=== PATIENT | male | born 1985 | race Hispanic/Latino ===

== ENCOUNTER 2020-05-17 13:29 | Emergency (ER) | payer SELFPAY ==
[2020-05-17 14:14] VITALS: BP 139/89
--- NOTE | 2020-05-17 14:19 | Event Note ---
ED Screening Note Date of service: 05/17/20 Time: 14:15 ED Screening Note: 34-year-old morbid obese male presents to the emergency room complaining of lymph node swelling, bilateral ringing of his ears x2 weeks nausea and dizziness. Patient states he was seen at the urgent care and was treated with a azithromycin for STD. Patient States that he feels like he is going to fall when he he lifts his head backwards. Patient does admit to nausea. Last Covid test was yesterday and negative. Patient denies any smoking weed denies drinking alcohol but does admit to smoking cigarettes. Patient states he does not take any medications on a daily basis. Patient has a complete neuro examination. Does have swelling to his right tonsillar lymph. Bilateral ears traction to the tympanic membrane nonerythematous. This initial assessment/diagnostic orders/clinical plan/treatment(s) is/are subject to change based on patients health status, clinical progression and re- assessment by fellow clinical providers in the ED. Further treatment and workup at subsequent clinical providers discretion. Patient/guardian urged not to elope from the ED as their condition may be serious if not clinically assessed and managed. Initial orders include:
--- NOTE | 2020-05-17 18:16 | Emergency Department Report ---
ED General Adult HPI - General Chief complaint: Earache Stated complaint: DIZZY/NAUSEA/EAR RINGING Time Seen by Provider: 05/17/20 17:57 Source: patient Mode of arrival: Ambulatory Limitations: No Limitations - History of Present Illness Initial comments: This is a 34-year-old man who reports bilateral otalgia for 2 weeks. He complains of occasional nausea and positional dizziness. He has developed tenderness over this time. He states that he went to a local clinic for STD related symptoms and was given a azithromycin for the same. That problem a pparently resolved. He has a sore throat and has noted pus on his right tonsil in particular. He states that he gets dizzy at times with leaning his head back. He is aware of multiple swollen glands about his anterior neck. He does not report any recent fever or chills. He does not describe pain in his mastoid areas per se. He has had an occasional cough. He had a Covid test yesterday that was negative. He said no recent HIV testing. 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 He states he smokes cigarettes. In the past he states that he had an apparent event monitor for 60 days which he states that he wore because of "massive" drug use. He states he was told he had a heart problem at that time but not subsequently. Cannot describe his heart issue any further. He does not take any regular medications. He states that he is recently moved to this area. -: Gradual, week(s) Location: neck (Sore throat, earache, swollen lymph nodes neck) Radiation: non-radiation Quality: aching Consistency: intermittent Improves with: none Worsens with: none Associated Symptoms: denies other symptoms, cough. denies: chest pain, fever/chills, nausea/vomiting, shortness of breath, syncope Treatments Prior to Arrival: other (Azithromycin) - Related Data Previous Rx's Medication Instructions Recorded Last Taken Type Sulfamethoxazole/Trimethoprim 1 each PO BID #14 tablet 05/17/20 Unknown Rx [Bactrim DS TAB] Allergies Allergy/AdvReac Type Severity Reaction Status Date / Time No Known Allergies Allergy Verified 05/17/20 13:45 ED Review of Systems ROS: Stated complaint: DIZZY/NAUSEA/EAR RINGING Other details as noted in HPI Constitutional: denies: chills, fever Eyes: denies: eye pain, eye discharge, vision change ENT: as per HPI, ear pain, throat pain Respiratory: cough. denies: shortness of breath Cardiovascular: denies: chest pain, palpitations Endocrine: no symptoms reported Gastrointestinal: denies: abdominal pain, nausea, diarrhea Genitourinary: denies: urgency, dysuria Musculoskeletal: denies: back pain, arthralgia Skin: denies: rash, lesions Neurological: denies: headache, weakness, paresthesias Psychiatric: denies: anxiety, depression Hematological/Lymphatic: denies: easy bleeding, easy bruising ED Past Medical Hx - Past Medical History Previous Medical History?: Yes Additional medical history: See HPI above - Social History Smoking Status: Current Every Day Smoker Substance Use Type: None - Medications Home Medications: Home Medications Medication Instructions Recorded Confirmed Last Taken Type Sulfamethoxazole/Trimethoprim 1 each PO BID #14 tablet 05/17/20 Unknown Rx [Bactrim DS TAB] ED Physical Exam - General Limitations: Physical Limitation General appearance: obese - Head Head exam: Present: atraumatic, normocephalic - Eye Eye exam: Present: normal appearance. Absent: scleral icterus - ENT ENT exam: Present: mucous membranes moist, other (Erythema and focal bulging of the left tympanic membrane noted, the right tympanic membrane is also erythematous but not bulging). Absent: normal exam (There is some tenderness to palpation of the right mastoid), TM's normal bilaterally - Neck Neck exam: Present: normal inspection, lymphadenopathy (Noted in the posterior cervical chain the anterior cervical chain and the periauricular area, nothing fluctuant), other (Very substantial lymphadenopathy) - Respiratory Respiratory exam: Present: normal lung sounds bilaterally. Absent: respiratory distress - Cardiovascular Cardiovascular Exam: Present: regular rate, normal rhythm. Absent: systolic murmur, diastolic murmur, rubs, gallop - GI/Abdominal GI/Abdominal exam: Present: soft, normal bowel sounds. Absent: distended, tenderness, guarding, rebound - Rectal Rectal exam: Present: deferred - Extremities Exam Extremities exam: Present: normal inspection - Back Exam Back exam: Present: normal inspection - Neurological Exam Neurological exam: Present: alert, oriented X3, CN II-XII intact. Absent: motor sensory deficit - Psychiatric Psychiatric exam: Present: normal affect, normal mood - Skin Skin exam: Present: warm, dry, intact, normal color. Absent: rash ED Course Vital Signs 05/17/20 13:43 Temperature 98.0 F Pulse Rate 80 Respiratory 20 Rate Blood Pressure 139/89 O2 Sat by Pulse 97 Oximetry - Reevaluation(s) Reevaluation #1: On reassessment the patient is resting comfortably. He looks nontoxic. His airway is certainly fully patent. He had no respiratory symptoms of my occasional cough. Although his Monospot was negative, he does have some increased monocytes. I think it be worthwhile to place him on an antibiotic. We will avoid amoxicillin because I do not think mono has been fully ruled out. 05/17/20 19:37 ED Medical Decision Making - Lab Data Result diagrams: 05/17/20 18:25 05/17/20 18:25 Laboratory Results - last 24 hr 05/17/20 18:25 WBC 6.3 RBC 4.82 Hgb 14.9 Hct 43.0 MCV 89 MCH 31 MCHC 35 H RDW 12.9 L Plt Count 157 Lymph % (Auto) 23.0 [place] % (Auto) 7.9 H Eos % (Auto) 2.2 Baso % (Auto) 0.6 Lymph # (Auto) 1.5 [place] # (Auto) 0.5 Eos # (Auto) 0.1 Baso # (Auto) 0.0 Seg Neutrophils % 66.3 Seg Neutrophils # 4.2 Laboratory Results - last 24 hr 05/17/20 05/17/20 05/17/20 18:25 18:25 18:25 WBC 6.3 RBC 4.82 Hgb 14.9 Hct 43.0 MCV 89 MCH 31 MCHC 35 H RDW 12.9 L Plt Count 157 Lymph % (Auto) 23.0 [place] % (Auto) 7.9 H Eos % (Auto) 2.2 Baso % (Auto) 0.6 Lymph # (Auto) 1.5 [place] # (Auto) 0.5 Eos # (Auto) 0.1 Baso # (Auto) 0.0 Seg Neutrophils % 66.3 Seg Neutrophils # 4.2 Sodium 136 L Potassium 4.0 Chloride 101.3 Carbon Dioxide 28 Anion Gap 11 BUN 11 Creatinine 0.9 Estimated GFR > 60 BUN/Creatinine Ratio 12 Glucose 186 H Calcium 8.7 Total Bilirubin 0.40 Direct Bilirubin < 0.2 Indirect Bilirubin 0.2 AST 34 ALT 64 H Alkaline Phosphatase 73 Total Protein 7.0 Albumin 3.5 L Albumin/Globulin Ratio 1.0 Laboratory Results - last 24 hr 05/17/20 05/17/20 05/17/20 18:25 18:25 18:25 WBC 6.3 RBC 4.82 Hgb 14.9 Hct 43.0 MCV 89 MCH 31 MCHC 35 H RDW 12.9 L Plt Count 157 Lymph % (Auto) 23.0 [place] % (Auto) 7.9 H Eos % (Auto) 2.2 Baso % (Auto) 0.6 Lymph # (Auto) 1.5 [place] # (Auto) 0.5 Eos # (Auto) 0.1 Baso # (Auto) 0.0 Seg Neutrophils % 66.3 Seg Neutrophils # 4.2 Sodium 136 L Potassium 4.0 Chloride 101.3 Carbon Dioxide 28 Anion Gap 11 BUN 11 Creatinine 0.9 Estimated GFR > 60 BUN/Creatinine Ratio 12 Glucose 186 H Calcium 8.7 Total Bilirubin 0.40 Direct Bilirubin < 0.2 Indirect Bilirubin 0.2 AST 34 ALT 64 H Alkaline Phosphatase 73 Total Protein 7.0 Albumin 3.5 L Albumin/Globulin Ratio 1.0 Monoscreen 05/17/20 18:25 WBC RBC Hgb Hct MCV MCH MCHC RDW Plt Count Lymph % (Auto) [place] % (Auto) Eos % (Auto) Baso % (Auto) Lymph # (Auto) [place] # (Auto) Eos # (Auto) Baso # (Auto) Seg Neutrophils % Seg Neutrophils # Sodium Potassium Chloride Carbon Dioxide Anion Gap BUN Creatinine Estimated GFR BUN/Creatinine Ratio Glucose Calcium Total Bilirubin Direct Bilirubin Indirect Bilirubin AST ALT Alkaline Phosphatase Total Protein Albumin Albumin/Globulin Ratio Monoscreen Negative - Radiology Data IMPRESSION: No acute focal parenchymal lesion in the brain Opacified left mastoid tip air cells; no CT findings to suggest coalescent mastoiditis; no erosive changes along left sigmoid plate or outer table of the bone Signer Name: Angelo Triana MD Signed: 05/17/2020 6:40 PM Workstation Name: [id number] Critical care attestation.: If time is entered above; I have spent that time in minutes in the direct care of this critically ill patient, excluding procedure time. ED Disposition Clinical Impression: Viral illness, Lymphadenopathy of head and neck, Hyperglycemia Disposition: - TO HOME OR SELFCARE Is pt being admited?: No Does the pt Need Aspirin: No Condition: Stable Instructions: Preventing Type 2 Diabetes Mellitus, Infectious Mononucleosis Additional Instructions: It would appear that mononucleosis is still a possible explanation for your symptoms although the preliminary test was negative. This test can be negative early on in the disease and turn positive later on. Your sugar was a bit elevated and that should be rechecked in the future. I think your illness is largely viral but we are going to put you on an antibiotic anyway. I am going to refer you to an ear nose and throat doctor for further care and evaluation. She can look over your skin and see if anything further is recommended antibiotic gale. Prescriptions: Sulfamethoxazole/Trimethoprim [Bactrim DS TAB] 1 each PO BID #14 tablet Referrals: PRIMARY CARE, [Primary Care Provider] - 3-5 Days JULIAN AZEVEDO MD [Referring] - 3-5 Days [facility] [Provider Group] - 3-5 Days Time of Disposition: 19:42
[2020-05-17 18:45] LABS: Basophils % (Auto) 0.6 % (0.0-1.8); Eosinophils # (Auto) 0.1 K/mm3 (0.0-0.4); Eosinophils % (Auto) 2.2 % (0.0-4.3); Hemoglobin 14.9 gm/dl (11.8-15.2); Lymphocytes # (Auto) 1.5 K/mm3 (1.2-5.4); Mean Corpuscular HGB Conc 35 % (32-34); Mean Corpuscular Volume 89 fl (84-94); Monocytes # (Auto) 0.5 K/mm3 (0.0-0.8); Monocytes % (Auto) 7.9 % (0.0-7.3); Platelet Count 157 K/mm3 (140-440); Red Blood Count 4.82 M/mm3 (3.65-5.03); Red Cell Distribution Width 12.9 % (13.2-15.2)
--- NOTE | 2020-05-17 18:45 | Cat Scan Report ---
NONENHANCED CT SCAN OF THE HEAD: INDICATION / CLINICAL INFORMATION: 34 years Male; mastoid tenderness, dizziness, tinnitis. TECHNIQUE: Routine CT head without contrast. All CT scans at this location are performed using CT dos e reduction for ALARA by means of automated exposure control. COMPARISON: None. FINDINGS: BRAIN / INTRACRANIAL CONTENTS: No acute hemorrhage, mass effect, midline shift, hydrocephalus, or acu te, large territorial infarct. No chronic infarct or focal atrophy. Normal brain volume and ventricul ar/sulcal size for age. No significant white matter abnormality. CT scan of the temporal bones: Left mastoid air cells are opacified; no CT findings to suggest coales cent mastoiditis; no adjacent soft tissue swelling; no bone erosion; both external auditory canals, m iddle ear and inner ear structures are normal; petrous apex and vestibular aqueduct normal CRANIOCERVICAL JUNCTION: No significant abnormality. ORBITS: No significant abnormality of visualized orbits. SINUSES / MASTOIDS: Mucous retention cyst in the left maxillary sinus and right posterior ethmoid air cell ADDITIONAL FINDINGS: None. IMPRESSION: No acute focal parenchymal lesion in the brain Opacified left mastoid tip air cells; no CT findings to suggest coalescent mastoiditis; no erosive ch anges along left sigmoid plate or outer table of the bone Signer Name: Angelo Triana MD Signed: 05/17/2020 6:40 PM Workstation Name: [id number]
[2020-05-17 18:59] LABS: BUN/Creatinine Ratio 12; Blood Urea Nitrogen 11 mg/dL (9-20); Calcium 8.7 mg/dL (8.4-10.2); Hemolysis Index 13
[2020-05-17 19:03] LABS: Alanine Aminotransferase 64 units/L (7-56); Albumin 3.5 g/dL (3.9-5)
[2020-05-17 19:04] LABS: Bilirubin,Direct < 0.2 mg/dL (0-0.2)
[2020-05-17] MEDS ORDERED: SULFAMETHOXAZOLE/TRIMETHOPRIM 800/160MG DS TAB PO ONE (19:44)
== END 2020-05-17 19:55 | disposition home or self-care (01) ==
LOC: ED 13:29
DX: B34.9 Viral infection, unspecified (principal); R59.0 Localized enlarged lymph nodes; R73.9 Hyperglycemia, unspecified; F17.200 Nicotine dependence, unspecified, uncomplicated; Z79.899 Other long term (current) drug therapy
CPT/HCPCS: 36415; 70450; 80048; 80076; 85025; 86308